=== PATIENT | female | born 1935 | race Caucasian/White ===

== ENCOUNTER 2017-05-06 10:41 | Inpatient (IN) | payer MEDICAID, MEDICARE ==
[~2017-05-06] VITALS: Ht 165.1 cm; Wt 72.1 kg
[2017-05-06 10:43] VITALS: BP 147/86
--- NOTE | 2017-05-06 10:55 | NUR ---
PATIENT BIB [facility] TO ER BED 4.
--- NOTE | 2017-05-06 10:56 | NUR ---
EKG AT BEDSIDE.
--- NOTE | 2017-05-06 10:56 | NUR ---
82F BIBA FROM HOME C/O DIFFICULTY BREATHING AND DIFFICULTY SWALLOWING X THIS MORNING; PT AWAKE, ALERT, ORIENTED, ANSWERING IN FULL SENTENCES ON ARRIVAL. HX: HTN, ARTHRITIS, STENT PLACEMENT IN HEART.DENIES N/V/D; SKIN IS PINK/WARM/DRY; AAOX4 WITH EVEN AND UNTEADY GAIT; LUNGS CLEAR BL; HR EVEN AND REGULAR; PATIENT STATES PAIN OF 7/10 AT THIS TIME; VSS; PATIENT POSITIONED FOR COMFORT; HOB ELEVATED; BEDRAILS UP X2; BED DOWN. ER MD MADE AWARE OF PT STATUS.
--- NOTE | 2017-05-06 10:58 | NUR ---
Kennedy adams in [facility] - 05/06/17 at 1058 by MEDDCV PATIENT BEING EVALUATED BY DR. WAGNER.
--- NOTE | 2017-05-06 10:58 | NUR ---
PATIENT BEING EVALUATED BY DR. WAGNER.
[2017-05-06] MEDS ORDERED: NACL 0.9% 1,000 ML IV SCH (11:00)
[2017-05-06] MEDS ORDERED: IPRATROPIUM 0.02% 0.5 MG/2.5 ML NEBU INH ONE (11:05)
[2017-05-06] MEDS ORDERED: ALBUTEROL 0.083% 2.5 MG/3 ML NEBU INH ONE (11:05)
[2017-05-06] MEDS ORDERED: KETOROLAC 30 MG/ML VIAL IVP ONE (11:05)
--- NOTE | 2017-05-06 11:15 | NUR ---
INSERTED IV CATH 20G LAC; PT TOLERATED PROCEDURE WELL . IV PATENT/INTACT.
--- NOTE | 2017-05-06 11:20 | NUR ---
RT AT BEDSIDE FOR 1ST BREATHING TREATMENT.
[2017-05-06 11:25] LABS: BASOPHILS # (AUTO) 0.2 K/uL (0.00-0.22); BASOPHILS % (AUTO) 3.2 % (0.0-2.0); EOSINOPHILS # (AUTO) 0.1 K/uL (0-0.4); EOSINOPHILS % (AUTO) 1.9 % (0.0-4.0); HEMATOCRIT 42.6 % (36-48); HEMOGLOBIN 14.1 g/dL (12.0-16.0); LYMPHOCYTES # (AUTO) 0.8 K/uL (2.5-16.5); LYMPHOCYTES % (AUTO) 13.8 % (20.5-51.1); MEAN CORPUSCULAR HEMOGLOBIN 30 pg (27-31); MEAN CORPUSCULAR HGB CONC 33 g/dL (33-37); MEAN CORPUSCULAR VOLUME 90 fL (80-94); MONOCYTES # (AUTO) 0.3 K/uL (0.8-1.0); MONOCYTES % (AUTO) 5.5 % (1.7-9.3); NEUTROPHILS # (AUTO) 4.7 K/uL (1.8-7.7); NEUTROPHILS % (AUTO) 75.6 % (42.2-75.2); PLATELET COUNT (AUTO) 162 K/uL (140-450); RED BLOOD CELL COUNT(AUTO) 4.74 MIL/uL (4.20-5.40); WHITE BLOOD COUNT (AUTO) 6.1 K/uL (4.8-10.8)
[2017-05-06 11:41] LABS: AMYLASE 28 U/L (25-115); LIPASE 46 U/L (73-393)
[2017-05-06 11:43] LABS: ANION GAP 9.9 (8-16); CALCIUM 8.9 mg/dL (8.5-10.1); CARBON DIOXIDE 29.9 mmol/L (21-32); CHLORIDE 104 mmol/L (98-107); CREATININE 0.8 mg/dL (0.6-1.3); GLUCOSE 99 mg/dL (74-106); POTASSIUM 3.8 mmol/L (3.5-5.1); SODIUM SERUM 140 mmol/L (136-145); UREA NITROGEN, BLOOD 8 mg/dL (7-18)
--- NOTE | 2017-05-06 11:46 | NUR ---
INSERTED IV CATH 20G RAC; PT TOLERATED PROCEDURE WELL . IV PATENT/INTACT.
[2017-05-06 11:47] LABS: ALANINE AMINOTRANSFERASE 17 U/L (14-59); ALBUMIN 3.7 g/dL (3.4-5.0); ALKALINE PHOSPHATASE 77 U/L (46-116); ASPARTATE AMINOTRANSFERASE 22 U/L (15-37); TOTAL BILIRUBIN 0.8 mg/dL (0.0-1.0); TOTAL PROTEIN, SERUM 7.6 g/dL (6.4-8.2)
[2017-05-06 11:50] LABS: INR 1.1 (0.8-1.2); PARTIAL THROMBOPLASTIN TIME 27.5 secs (22-35.6); PROTHROMBIN TIME 11.2 secs (10.8-13.4)
[2017-05-06] MEDS ORDERED: LORazepam 2 MG/ML VIAL IVP ONE (12:25)
[2017-05-06] MEDS ORDERED: ACETAMINOPHEN 325 MG TAB PO PRN (15:00)
[2017-05-06] MEDS ORDERED: DOCUSATE SODIUM 100 MG GELCAP PO PRN (15:00)
[2017-05-06] MEDS ORDERED: ONDANSETRON 4 MG/2 ML VIAL IM/IVP PRN (15:00)
[2017-05-06 15:21] LABS: APPEARANCE,URINE CLEAR (CLEAR); BILIRUBIN,URINE NEGATIVE (NEGATIVE); BLOOD, URINE 2+ (NEGATIVE); COLOR,URINE YELLOW (YELLOW); LEUKOCYTE ESTERASE ,URINE NEGATIVE (NEGATIVE); NITRITE, URINE NEGATIVE (NEGATIVE); PH,URINE 5.5 (5.0-9.0); PROTEIN,URINE NEGATIVE (NEGATIVE); UGLUCOSE NEGATIVE (NEGATIVE); UROBILINOGEN,URINE 0.2 EU/dL (0.2 - 1)
[2017-05-06 15:28] LABS: AMPHETAMINE, URINE NEG. ng/ml (NEG <=1000); BARBITURATE, URINE NEG. ng/ml (NEG <=200); BENZODIAZEPINE, URINE POS. ng/mL (NEG <=200); CANNABINOID, URINE NEG. ng/mL (NEG <=50); COCAINE, URINE NEG. ng/mL (NEG <=300); OPIATE, URINE POS. ng/mL (NEG <=2000); PHENCYCLIDINE SCREEN,URINE NEG. ng/mL (NEG <=25)
[2017-05-06 15:37] LABS: CHOL/HDL RATIO 3.9 (1-4.5); FREE T4 (FREE THYROXINE) 1.25 ng/dL (0.76-1.46); MAGNESIUM 1.9 mg/dL (1.8-2.4); PHOSPHORUS 3.5 mg/dL (2.5-4.9); THYROID STIMULATING HORMONE 0.89 uIU/mL (0.34-3.74)
[2017-05-06 15:47] LABS: BACTERIA,URINE RARE /HPF (None Seen); MUCUS,URINE 1+ /LPF (None Seen); RBC,URINE 0-5 /HPF (0-5); SQUAMOUS EPITHELIAL CELL,UR 0-3 /LPF (0-3 (FEW)); WBC,URINE 0-3 /HPF (0-5)
--- NOTE | 2017-05-06 15:49 | NUR ---
Patient will be admitted to care of DR GONZALEZ. Admited to TELE. Will go to [id number]. Belongings list completed. Report to ELISA RIVERA.
[2017-05-06] MEDS ORDERED: LORazepam 2 MG/ML VIAL IM/IVP PRN (15:50)
[2017-05-06] MEDS ORDERED: LIDOCAINE VISCOUS 2% 20 ML UDC PO PRN (15:50)
[2017-05-06] MEDS ORDERED: DICYCLOMINE HCL LIQUID 10 MG/5 ML UDC PO PRN (15:50)
[2017-05-06] MEDS ORDERED: ALUMINUM HYD/MAG/SIMETHICONE 30 ML UDC PO PRN (16:01)
[2017-05-06 16:15] VITALS: BP 149/91
--- NOTE | 2017-05-06 17:00 | NUR ---
Admitted from ED , with chief complaint of SOB, [id number] WEEK. PT IS AAOX4, 82 y/o ,Female, Cooperative,oriented to call light, bed, phone,television, bathroom, smoking policy,visiting hours, procedures, ID bracelet on. Belongings list checked.Instructed to hali;l for assistance, call light within reach, pt verbalized understanding.
[2017-05-06] MEDS ORDERED: PNEUMOCOCCAL VACCINE 23 MCG/0.5 ML VIAL IMVAC SCH (17:05)
[2017-05-06] MEDS ORDERED: ZOLP5TAB1 PO (17:26)
[2017-05-06] MEDS ORDERED: GABA100C PO ×2 (17:33→18:10)
[2017-05-06] MEDS ORDERED: MECL-270 PO (17:33)
[2017-05-06] MEDS ORDERED: DIAZ5TAB6 PO (17:33)
[2017-05-06] MEDS ORDERED: LOSA100T1 PO ×2 (17:33→18:10)
[2017-05-06] MEDS ORDERED: ZOLP10TA1 PO (18:10)
[2017-05-06] MEDS ORDERED: ROSU20TA PO (18:10)
[2017-05-06] MEDS ORDERED: ISOS20TA13 PO (18:10)
[2017-05-06] MEDS ORDERED: MECL-322 PO (18:10)
[2017-05-06] MEDS ORDERED: DIAZ5TAB7 PO (18:10)
[2017-05-06] MEDS ORDERED: DIAZEPAM 5 MG TAB PO PRN (18:15)
[2017-05-06] MEDS: NACL 0.9% 1,000 ML IV SCH (18:16)
--- NOTE | 2017-05-06 19:25 | NUR ---
pt awake, Ultrasound of thyroid on going at the bedside. no signs of pain noted at this time. endorsed to next shift nurse for continuity of care.
--- NOTE | 2017-05-06 19:30 | NUR ---
RECEIVED REPORTS FROM DAY RN. PATIENT RESTING IN BED AND RECEIVING ULTRASOUND OF THYROID AT BEDSIDE, NO S/S OF ACUTE DISTRESS NOTED, RESPIRATION EVEN AND UNLABORED. IV INTACT AND PATENT, INFUSING NS AT 60ML/HR. CALL LIGHT WITHIN REACH, SAFETY MEASURE ENSURED. WILL CONTINUE TO MONITOR.
[2017-05-06 20:00] VITALS: BP 159/90
[2017-05-06] MEDS ORDERED: ATORVASTATIN 20 MG TAB PO SCH ×2 (21:00→21:10)
[2017-05-06] MEDS: ATORVASTATIN 20 MG TAB PO SCH (21:00)
[2017-05-06] MEDS: ZOLPIDEM 5 MG TAB PO SCH (21:21)
[2017-05-06] MEDS: MORPHINE SULFATE 2 MG/ML SYR IVP PRN (21:25)
--- NOTE | 2017-05-06 21:37 | NUR ---
PATIENT REPORTED RIGHT SHOULDER PAIN 8/10, BP 150/88, HR 78, MORPHINE GIVEN ORDERED, AND REPOSITIONED PATIENT TO HER COMFORTABLE POSITION, DIM THE LIGHT. CALL LIGHT WITHIN REACH, SAFETY MEASURE ENSURED, WILL CONTINUE TO MONITOR.
--- NOTE | 2017-05-06 23:20 | NUR ---
PATIENT SLEEPING IN BED, NO S/S OF ACUTE DISTRESS NOTED, RESPIRATION EVEN AND UNLABORED, CALL LIGHT WITHIN REACH, SAFETY MEASURE ENSURED, WILL CONTINUE TO MONITOR.
[2017-05-07] VITALS: BP 147/70
[2017-05-07] MEDS: MORPHINE SULFATE 2 MG/ML SYR IVP PRN ×3 (01:42→17:25)
--- NOTE | 2017-05-07 01:45 | NUR ---
ASSISTED PATIENT TO USE THE BEDSIDE COMMODE, PATIENT STATED PAIN 8/10 AROUND HER NECK, MORPHINE GIVEN ORDERED, REPOSITION PATIENT TO HER COMFORTABLE POSITION, CALL LIGHT WITHIN REACH, SAFETY MEASURE ENSURED, WILL CONTINUE TO MONITOR.
--- NOTE | 2017-05-07 02:55 | NUR ---
PATIENT SLEEPING IN BED, NO S/S OF ACUTE DISTRESS NOTED, RESPIRATION EVEN AND UNLABORED, CALL LIGHT WITHIN REACH, SAFETY MEASURE ENSURED, WILL CONTINUE TO MONITOR.
[2017-05-07 04:00] VITALS: BP 128/68
--- NOTE | 2017-05-07 04:28 | NUR ---
PATIENT SLEEPING IN BED, EASY TO AROUSE, NO S/S OF ACUTE DISTRESS NOTED, RESPIRATION EVEN AND UNLABORED, CALL LIGHT WITHIN REACH, SAFETY MEASURE ENSURED, WILL CONTINUE TO MONITOR.
--- NOTE | 2017-05-07 06:29 | NUR ---
PATIENT SLEEPING IN BED, NO S/S OF ACUTE DISTRESS NOTED, RESPIRATION EVEN AND UNLABORED, CALL LIGHT WITHIN REACH, SAFETY MEASURE ENSURED, WILL CONTINUE TO MONITOR.
[2017-05-07 06:35] LABS: ANION GAP 9.1 (8-16); CARBON DIOXIDE 28.1 mmol/L (21-32); CHLORIDE 108 mmol/L (98-107); CREATININE 0.7 mg/dL (0.6-1.3); GLUCOSE 85 mg/dL (74-106); POTASSIUM 3.2 mmol/L (3.5-5.1); SODIUM SERUM 142 mmol/L (136-145); UREA NITROGEN, BLOOD 10 mg/dL (7-18)
--- NOTE | 2017-05-07 06:40 | NUR ---
PATIENT HAS BEEN SCREENED AND CATEGORIZED HIGH NUTRITION RISK. PATIENT WILL BE SEEN WITHIN 1-2 DAYS OF ADMISSION. 05/07/17-05/08/17 LYNDA LARSEN MS, RDN
[2017-05-07 06:50] LABS: MAGNESIUM 1.9 mg/dL (1.8-2.4); PHOSPHORUS 4.1 mg/dL (2.5-4.9)
--- NOTE | 2017-05-07 07:20 | NUR ---
ENDORSED PLAN OF CARE TO DAY RN, PATIENT RESTING IN BED, IN STABLE CONDITION. RESPIRATION EVEN AND UNLABORED.
--- NOTE | 2017-05-07 07:30 | NUR ---
RECEIVED PT ON BED AWAKE AND ALERT. NO SOB NOTED. NO C/O PAIN AT THIS TIME. IV TO LEFT UPPER ARM PATENT AND INTACT. CHEST, DIMINISHED AIR ENTRY TO THE BASES, OTHERWISE CLEAR. ABDOMEN SOFT, BOWEL SOUNDS PRESENT. NO EDEMA NOTED. SCD'S IN PLACE. INSTRUCTED PT TO CALL FOR ASSISTANCE, CALL LIGHT WITHIN REACH, PT VERBALIZED UNDERSTANDING
[2017-05-07] MEDS: NACL 0.9% 1,000 ML IV SCH ×2 (07:37→17:58)
[2017-05-07 08:00] VITALS: BP 132/62
[2017-05-07] MEDS: LOSARTAN 50 MG TAB PO SCH (09:47)
[2017-05-07] MEDS: PANTOPRAZOLE 40 MG TABEC PO PRN (09:48)
[2017-05-07] MEDS: GABAPENTIN 100 MG CAP PO SCH ×3 (09:48→18:22)
[2017-05-07] MEDS: MECLIZINE 25 MG TAB PO PRN ×2 (09:48→22:30)
[2017-05-07] MEDS: ISOSORBIDE DINITRATE 20 MG TAB PO SCH (09:48)
[2017-05-07] MEDS: DIAZEPAM 5 MG TAB PO PRN ×2 (09:50→18:22)
--- NOTE | 2017-05-07 10:30 | NUR ---
PT ASSISTED TO THE BEDSIDE BY ICE DELIVERY DRIVER, ACTIVITY TOLERATED WELL.
[2017-05-07 12:00] VITALS: BP 128/63
[2017-05-07] MEDS ORDERED: CALCIUM CARB/VIT-D 500 MG/200 IU 1 TAB PO SCH ×2 (12:29→21:00)
[2017-05-07] MEDS ORDERED: POTASSIUM CHLORIDE 40 MEQ, LIDOCAINE 1% 25 MG in NACL 0.9% 250 ML IV SCH (13:00)
--- NOTE | 2017-05-07 14:30 | NUR ---
PRESENT IV LEAKING AND REMOVED. A NEW IV LINE ON LT HAND ESTABLISHED WITH GAUGE 24.
--- NOTE | 2017-05-07 14:57 | NUR ---
PT TRANSFERRED TO MED SURG ORDERED, TELEMETRY BOX REMOVED.
--- NOTE | 2017-05-07 17:00 | NUR ---
RECEIVED REPORT FROM MIGUEL RN AT BEDSIDE FOR CONTINUITY OF CARE. PT IS RESTING COMFORTABLY. IV AT L HAND 24G INFUSING K-RIDER W/ LIDO AT 48ML/HR. PT COMPLAINED OF PAIN DURING INFUSION. SLOWED IT DOWN. PT NOW TOLERATING WELL. PT'S SKIN INTACT. NOTED TH L UPPER ARM BRUISE FROM OLD IV. PT ON ROOM AIR. NOTED NO DIFFICULTY IN BREATHING. NO SOB. PT AWAITING FNS EVAL/SWALLOW EVAL AND DR. CUEVAS CONSULT. WILL CONTINUE TO MONITOR PT.
--- NOTE | 2017-05-07 17:25 | NUR ---
PT C/O OF PAIN IN HER IV SITE D/T THE K-RIDER. REDUCED TO 38ML/HR. PT TOLERATING WELL. WILL CONTINUE TO MONITOR.
--- NOTE | 2017-05-07 18:22 | NUR ---
ADMINISTERED GABAPENTIN AND VALIUM LATE. PT TOLERATED WELL. WILL CONTINUE TO MONITOR PT.
--- NOTE | 2017-05-07 18:44 | NUR ---
PT SLEEPING SOUNDLY. NO SIGNS OF DISTRESS. WILL CONTINUE TO MONITOR PT.
--- NOTE | 2017-05-07 19:21 | NUR ---
ENDORSED PT TO THE NIGHTSHIFT NURSE AT BEDSIDE FOR CONTINUITY OF CARE. PT IN STABLE CONDITION.
--- NOTE | 2017-05-07 19:21 | NUR ---
PATIENT IS CURRENTLY AWAKE ALERT TO NAME AND PLACE AND ABLE TO FOLLOW COMMANDS.PATIENT IS RESTING IN BED IS ABLE TO LET US KNOW WHEN SHE NEEDS TO USE THE BEDPAN OR BEDSIDE COMMODE.PATIENT IS WEARING THE SCD'S FOR DVT PROPHALAXIS AND IS ON FALL PRECAUTIONS.EDUCATION GIVEN ON THE IMPORTANCE OF USING THE INCENTIVE SPIROMETER FOR BREATHING EXERCISES PATIENT VERBALIZES UNDERSTANDING BUT REINFORCEMENT IS NEEDED.CALL LIGHT WITHIN REACH WILL CONTINUE TO MONITOR.
--- NOTE | 2017-05-07 19:35 | NUR ---
Patient's Plan of Care was discussed and reviewed with CONSUMER LOAN MANAGER: RADHA
[2017-05-07 20:00] VITALS: BP 127/74
[2017-05-07] MEDS: CALCIUM CARB/VIT-D 500 MG/200 IU 1 TAB PO SCH (20:27)
[2017-05-07] MEDS: ZOLPIDEM 5 MG TAB PO SCH (20:27)
[2017-05-07] MEDS: ATORVASTATIN 20 MG TAB PO SCH (21:00)
--- NOTE | 2017-05-07 21:30 | NUR ---
PATIENT NEEDS MET CONTINUES TO BE CHANGED AND REPOSITIONED ASSISTED WITH THE BEDPAN [facility] GIVEN BY ALVARADO TOUSSAINT AND ALVARADO ZAMORA.
[2017-05-07] MEDS: HYDROcodone/APAP 7.5/325 MG 1 TAB PO PRN (22:29)
--- NOTE | 2017-05-07 23:45 | NUR ---
PATIENT SLEEPING AT THIS TIME IVF INFUSING WELL IV SITE PATENT.NEEDS MET CALL LIGHT WITHIN REACH.
[2017-05-08] VITALS: BP 137/86
--- NOTE | 2017-05-08 00:05 | NUR ---
VITALS SIGNS DONE PATIENT DENIES PAIN AND WENT BACK TO SLEEP.WILL CONTINUE TO MONITOR.
--- NOTE | 2017-05-08 02:55 | NUR ---
PATIENT IS CURRENTLY SLEEPING IN BED NO DISTRESS CURRENTLY CLEAN AND DRY.IVF INFUSING WELL WILL CONTINUE TO MONITOR.CALL LIGHT WITHIN REACH.
[2017-05-08] MEDS: MORPHINE SULFATE 2 MG/ML SYR IVP PRN ×4 (05:18→20:47)
--- NOTE | 2017-05-08 05:53 | NUR ---
PATIENT ASSISTED WITH THE BEDPAN AND PATIENT CONTINUES TO VOID WELL.PATIENT CURRENTLY STABLE SLEEPING PAIN LEVEL 0/10 AT THIS TIME,IVF INFUSING WELL IV SITE PATENT WILL CONTINUE TO MONITOR.
[2017-05-08 06:18] LABS: ANION GAP 8.7 (8-16); CALCIUM 8.1 mg/dL (8.5-10.1); CARBON DIOXIDE 28.1 mmol/L (21-32); CHLORIDE 109 mmol/L (98-107); CREATININE 0.8 mg/dL (0.6-1.3); GLUCOSE 87 mg/dL (74-106); POTASSIUM 3.8 mmol/L (3.5-5.1); SODIUM SERUM 142 mmol/L (136-145); UREA NITROGEN, BLOOD 8 mg/dL (7-18)
[2017-05-08 06:19] LABS: MAGNESIUM 1.9 mg/dL (1.8-2.4); PHOSPHORUS 3.4 mg/dL (2.5-4.9)
[2017-05-08] MEDS ORDERED: POTASSIUM CHLORIDE 10 MEQ TABER PO SCH (07:00)
--- NOTE | 2017-05-08 07:30 | NUR ---
RECEIVED REPORT FROM AM NURSE. PT IS IN STABLE CONDITION, ALERT, ORIENTED BUT FORGETFUL. IV FLUIDS INFUSING ON LEFT HAND GAUGE #24. BEDSIDE COMMODE AT THE SIDE OF THE BED. SKIN IS INTACT. PT ON FULL LIQUID DIET, ON ASPIRATION PRECAUTION. BED ON LOW POSITION, BED ALARM ON, CALL LIGHT WITHIN REACH. PT ENCOURAGED TO CALL FOR ANY ASSISTANCE NEEDED. WILL CONTINUE TO MONITOR. Addendum: 05/09/17 at 0408 by Mariana Power RN CANCEL ABOVE NOTATION. CAREGIVER MISTAKE .
--- NOTE | 2017-05-08 07:41 | NUR ---
PATIENT STABLE REPORT ENDORSED TO ELISA GOODWIN AT BEDSIDE.
--- NOTE | 2017-05-08 07:42 | NUR ---
RECEIVED REPORT FROM FIELD CROP FARMWORKER NURSE AT BEDSIDE. PT IS A&OX4 BUT FORGETFUL. PT HAS IV ON L WRIST 24 G RUNNING NS@60. PT IS C/O PAIN IN R SHOULDER. WILL MEDICATE. PT HAS STITCH ON L EYEBROW. PT USES BEDSIDE COMMODE AND BEDPAN. BED ALARM ON. CALL LIGHT WITHIN REACH. WILL CONTINUE TO MONITOR.
[2017-05-08 08:00] VITALS: BP 152/77
[2017-05-08] MEDS: DIAZEPAM 5 MG TAB PO PRN ×2 (08:21→18:32)
[2017-05-08] MEDS: ISOSORBIDE DINITRATE 20 MG TAB PO SCH (09:00)
[2017-05-08] MEDS: CALCIUM CARB/VIT-D 500 MG/200 IU 1 TAB PO SCH ×2 (09:00→21:33)
[2017-05-08] MEDS: GABAPENTIN 100 MG CAP PO SCH ×3 (09:00→17:04)
[2017-05-08] MEDS: LOSARTAN 50 MG TAB PO SCH (09:00)
[2017-05-08] MEDS: ATORVASTATIN 20 MG TAB PO SCH (09:00)
--- NOTE | 2017-05-08 09:30 | NUR ---
PT USED BED FONTAINE TO VOID. TOLERATED WELL. CALL LIGHT WITHIN REACH. WILL CONTINUE TO MONITOR.
[2017-05-08] MEDS ORDERED: LACTULOSE 20 GM/30 ML UDC PO SCH (10:27)
--- NOTE | 2017-05-08 11:03 | NUR ---
PT IS RESTING COMFORTABLY IN BED. CALL LIGHT WITHIN REACH. WILL CONTINUE TO MONITOR.
--- NOTE | 2017-05-08 12:51 | NUR ---
PT C/O PAIN. MEDICATED. PT TOLERATED WELL. CALL LIGHT WITHIN REACH. WILL CONTINUE TO MONITOR.
--- NOTE | 2017-05-08 13:25 | NUR ---
FAXED INITIAL REVIEW TO [facility] [phone] PHONE [place] [phone] REF #[id number]
--- NOTE | 2017-05-08 13:30 | NUR ---
SPEECH THERAPIST PERFORMING SWALLOW EVAL AT BEDSIDE. PT TOLERATED WELL.
--- NOTE | 2017-05-08 14:23 | NUR ---
05/08/17 RD INITIAL ASSESSMENT COMPLETED PLEASE REFER TO NUTRITION ASSESSMENT UNDER CARE ACTIVITY FOR ESTIMATED NUTRITIONAL NEEDS. 1. WHEN MEDICALLY FEASIBLE, INITIATE PO DIET - REGULAR WITH TEXTURE PER ST RECOMMENDATIONS 2. IF PO DIET NOT FEASIBLE, REFER TO RD FOR ALTERNATIVE NUTRITION SUPPORT 3. RD TO FOLLOW UP WITHIN 2-3 DAYS; HIGH RISK NO MATHIS RD
--- NOTE | 2017-05-08 15:54 | NUR ---
TALKED TO DR. DICK REGARDING PT'S REQUEST TO REMOVE STITCHES ON L EYEBROW AND HIGH BP OF 173/79. DR WILL SEE PT.
[2017-05-08 16:00] VITALS: BP 173/79
--- NOTE | 2017-05-08 16:20 | NUR ---
S.T. NOTES PLEASE REFER TO HARD CHART DOWNTIME FORMS FOR SWALLOW KIKA, AMANDA AND MADE AWARE RECOMMENDATION FOR MBSS VIDEO SWALLOW.
[2017-05-08 16:40] VITALS: BP 168/81
--- NOTE | 2017-05-08 16:40 | NUR ---
PHYSICAL THERAPIST WORKED WITH PT. BP 168/81. PT TOLERATED WELL BUT STILL WEAK. CALL LIGHT WITHIN REACH. WILL CONTINUE TO MONITOR.
[2017-05-08] MEDS: NACL 0.9% 1,000 ML IV SCH (16:57)
--- NOTE | 2017-05-08 17:00 | NUR ---
DR. DICK EXAMINED PT IN ROOM. STATED WILL ORDER TO REMOVE STITCHES.
--- NOTE | 2017-05-08 17:40 | NUR ---
STITCHES REMOVED. WOUND HEALED WELL. NO OPENING OR BLEEDING. PT TOLERATED WELL. CALL LIGHT WITHIN REACH. WILL CONTINUE TO MONITOR.
--- NOTE | 2017-05-08 19:29 | NUR ---
ENDORSED CARE OF PT TO PILAR RN AT BEDSIDE. PT IN STABLE CONDITION.
--- NOTE | 2017-05-08 19:30 | NUR ---
RECEIVED REPORT FROM AM NURSE. PT IS IN STABLE CONDITION, ALERT, ORIENTED BUT FORGETFUL. IV FLUIDS INFUSING ON LEFT HAND GAUGE #24. BEDSIDE COMMODE AT THE SIDE OF THE BED. SKIN IS INTACT. PT ON FULL LIQUID DIET, ON ASPIRATION PRECAUTION. BED ON LOW POSITION, BED ALARM ON, CALL LIGHT WITHIN REACH. PT ENCOURAGED TO CALL FOR ANY ASSISTANCE NEEDED. WILL CONTINUE TO MONITOR.
--- NOTE | 2017-05-08 20:40 | NUR ---
IV ACCESS ON LEFT HAND WAS LEAKING AND DISCONTINUED. STARTED NEW IV ACCESS ON LEFT UPPER ARM, GAUGE #24 BY DAVID PÉREZSOCIAL CONTACT WORKER.
[2017-05-08 20:44] VITALS: BP 157/80
--- NOTE | 2017-05-08 21:30 | NUR ---
ASSISTED PT TO BEDSIDE COMMODE. VOIDED WELL. PT REPOSITIONED BACK INTO BED.
[2017-05-08] MEDS: ZOLPIDEM 5 MG TAB PO SCH (21:33)
--- NOTE | 2017-05-08 23:00 | NUR ---
PT VOIDED IN BEDPAN PER HER REQUEST.
[2017-05-09 00:05] VITALS: BP 155/77
--- NOTE | 2017-05-09 01:00 | NUR ---
MADE ROUNDS, PT IS SLEEPING AND SHOWING NO SIGNS OF DISCOMFORT.
[2017-05-09] MEDS ORDERED: INSULIN LISPRO SLIDING SCALE 100 UNITS/ML VIAL SUBQ PRN (01:35)
[2017-05-09] MEDS ORDERED: NACL 0.9% 1,000 ML IV SCH (01:35)
[2017-05-09] MEDS ORDERED: DEXTROSE 50% 50 ML SYR IVP PRN (01:35)
[2017-05-09] MEDS: MORPHINE SULFATE 2 MG/ML SYR IVP PRN ×4 (02:08→20:50)
[2017-05-09] MEDS: NACL 0.9% 1,000 ML IV SCH ×2 (02:20→19:00)
--- NOTE | 2017-05-09 04:30 | NUR ---
PT IS SLEEPING SHOWING NO SIGNS OF DISCOMFORT.
--- NOTE | 2017-05-09 05:00 | NUR ---
ASSISTED PT WITH BEDPAN.
--- NOTE | 2017-05-09 06:00 | NUR ---
PT IS STILL SLEEPING, NO SIGNS OF DISCOMFORT NOTED.
[2017-05-09 06:21] LABS: HEMOGLOBIN A1C 5.1 % (4.8-5.6); T4 (THYROXINE) 7.3 ug/dL (4.5-12.0)
--- NOTE | 2017-05-09 06:30 | NUR ---
CALLED XR DEPT. CLARIFIED ABOUT XR ESOPHAGRAM TODAY. TECH SAID PT NEEDS TO BE NPO FOR THE TEST. SHE LAST HAD SOME WATER @2350 . WITH IVF INFUSING. EXPLAINED TO PT AND VERBALIZED UNDERSTANDING.
[2017-05-09 06:35] LABS: BASOPHILS # (AUTO) 0.1 K/uL (0.00-0.22); BASOPHILS % (AUTO) 2.8 % (0.0-2.0); EOSINOPHILS # (AUTO) 0.2 K/uL (0-0.4); HEMATOCRIT 36.5 % (36-48); HEMOGLOBIN 12.2 g/dL (12.0-16.0); LYMPHOCYTES # (AUTO) 1.1 K/uL (2.5-16.5); LYMPHOCYTES % (AUTO) 21.8 % (20.5-51.1); MEAN CORPUSCULAR HEMOGLOBIN 30 pg (27-31); MEAN CORPUSCULAR HGB CONC 33 g/dL (33-37); MEAN CORPUSCULAR VOLUME 90 fL (80-94); MONOCYTES # (AUTO) 0.4 K/uL (0.8-1.0); MONOCYTES % (AUTO) 7.1 % (1.7-9.3); NEUTROPHILS # (AUTO) 3.3 K/uL (1.8-7.7); NEUTROPHILS % (AUTO) 64.3 % (42.2-75.2); PLATELET COUNT (AUTO) 154 K/uL (140-450); RED BLOOD CELL COUNT(AUTO) 4.05 MIL/uL (4.20-5.40); RED CELL DISTRIBUTION WIDTH 13.1 % (11.6-13.7); WHITE BLOOD COUNT (AUTO) 5.1 K/uL (4.8-10.8)
[2017-05-09 06:49] LABS: ANION GAP 8.7 (8-16); CALCIUM 8.3 mg/dL (8.5-10.1); CARBON DIOXIDE 29.1 mmol/L (21-32); CHLORIDE 109 mmol/L (98-107); CREATININE 0.8 mg/dL (0.6-1.3); GLUCOSE 85 mg/dL (74-106); POTASSIUM 3.8 mmol/L (3.5-5.1); SODIUM SERUM 143 mmol/L (136-145); UREA NITROGEN, BLOOD 5 mg/dL (7-18)
[2017-05-09 06:55] LABS: MAGNESIUM 1.7 mg/dL (1.8-2.4); PHOSPHORUS 3.6 mg/dL (2.5-4.9)
[2017-05-09] MEDS ORDERED: BLOOD GLUCOSE MONITORING 1 DEV DEV FS SCH (07:30)
--- NOTE | 2017-05-09 07:35 | NUR ---
ENDORSED PT IN STABLE CONDITION TO AM NURSE.
--- NOTE | 2017-05-09 07:40 | NUR ---
RECEIVED PATIENT REPORT AT BEDSIDE FROM NIGHT NURSE. PATIENT IS AAOX4 AND SHOWS NO S/S OF ACUTE DISTRESS ON ROOM AIR AND DENIES PAIN. PATIENT'S SKIN IS INTACT. PATIENT IV NOTED ON THE L UPPER ARM WRAPPED WITH GAUZE THAT IS CLEAN DRY AND INTACT. IVF'S ARE INFUSING WELL. PATIENT IS BEING SEEN BY DR MALAGON AND IS EXPLAINING TO PATIENT OF PROCEDURE FOR ULTRASOUND GUIDED NEEDLE BIOPSY IN THYROID FOR LATER TODAY. ALL OF PATIENTS QUESTIONS WERE ANSWERED BY MD. PATIENT VERBALIZED UNDERSTANDING. THE PATIENT WAS ALSO EXPLAINED ABOUT HOW TO USE THE CALL LIGHT FOR ANY ASSISTANCE. PATIENT VERBALIZED UNDERSTANDING OF HOW TO USE THE CALL LIGHT. THE BED IS LOWERED WITH CALL LIGHT WITHIN REACH. WILL CONTINUE TO MONITOR.
[2017-05-09 07:57] VITALS: BP 155/76
[2017-05-09] MEDS: ATORVASTATIN 20 MG TAB PO SCH (08:39)
[2017-05-09] MEDS: LACTULOSE 20 GM/30 ML UDC PO SCH (08:39)
[2017-05-09] MEDS: ISOSORBIDE DINITRATE 20 MG TAB PO SCH (08:40)
[2017-05-09] MEDS: LOSARTAN 50 MG TAB PO SCH (08:40)
[2017-05-09] MEDS: GABAPENTIN 100 MG CAP PO SCH ×3 (08:40→16:20)
[2017-05-09] MEDS: CALCIUM CARB/VIT-D 500 MG/200 IU 1 TAB PO SCH ×2 (08:40→21:13)
[2017-05-09] MEDS: DOCUSATE SODIUM 100 MG GELCAP PO SCH (08:40)
--- NOTE | 2017-05-09 08:40 | NUR ---
ADMINISTERED SCHEDULED MEDICATIONS AND VALIUM 5 MG PO FOR PATIENT C/O ANXIETY. PATIENT TOOK ONE PILL AT A TIME WITH SIPS OF WATER. PATIENT DENIES ANY PAIN AND SOB. PATIENT TOLERATED ACTIVITY WELL. ALL NEEDS MET AT THIS TIME. THE BED IS LOWERED WITH CALL LIGHT WITHIN REACH.
[2017-05-09] MEDS: DIAZEPAM 5 MG TAB PO PRN (08:47)
--- NOTE | 2017-05-09 10:33 | NUR ---
SS NOTE: I SPOKE WITH PT'S SON, LAINE TO OBTAIN THE NAME OF THE HOME HEALTH AGENCY THAT COMES TO SEE PT. HE STATED THAT HE WILL CALL BACK WITH THAT INFORMATION. I ALSO PROVIDED HIM WITH ADVANCE DIRECTIVE INFORMATION REQUESTED BY PT SO THAT HE CAN GO OVER THE FORM WITH PT IF PT DECIDES TO COMPLETE THE FORM AT A LATER TIME.
--- NOTE | 2017-05-09 11:50 | NUR ---
PATIENT IS BEING SEEN BY FOR PROCEDURE OF THE ULTRASOUND GUIDED NEEDLE BIOPSY OF THE THYROID. PATIENT IS AAOX4 AND SHOWS NO S/S OF ACUTE DISTRESS.
--- NOTE | 2017-05-09 12:33 | NUR ---
FAXED CONCURRENT REVIEW TO [facility] [phone] [facility] [place] [phone] REF #[id number]
--- NOTE | 2017-05-09 14:05 | NUR ---
PATIENT IS AAOX4 AND SHOWS NO S/S OF ACUTE DISTRESS. PATIENT LEFT UNIT FOR PROCEDURE IN STABLE CONDITION.
--- NOTE | 2017-05-09 14:50 | NUR ---
PATIENT ARRIVED ONTO UNIT AND IS AAOX4 AND SHOWS NO S/S ACUTE DISTRESS.
--- NOTE | 2017-05-09 15:05 | NUR ---
S.T. VIDEOFLUOROSCOPIC SWALLOW STUDY completed See report for details. Pt presents w/ moderate oropharyngeal dysphagia. Trace laryngeal penetration with eventual silent aspiration observed with thin liquid barium via straw sip. Recommend: 1) Mechanical soft chopped diet, nectar thick liquids only. No straws; cup sips only. 2) P.O. meds as tolerated. 3) Pt is able to feed self, but would benefit from reminders to only drink nectar thickened liquids and avoid straws. G8996 CK G8997 CK NOMS LEVEL 4 TIME IN/OUT: [id number]
[2017-05-09 16:00] VITALS: BP 155/73
[2017-05-09] MEDS: HYDROcodone/APAP 7.5/325 MG 1 TAB PO PRN (16:20)
--- NOTE | 2017-05-09 16:20 | NUR ---
PATIENT C/O NECK PAIN 03/04. ADMINISTERED NORCO 7.5/325 MG PO. WILL REASSESS IN ONE HOUR.
[2017-05-09] MEDS ORDERED: MAG SULF 2000 MG/WATER PREMIX 50 ML IV SCH (16:30)
--- NOTE | 2017-05-09 17:19 | NUR ---
PATIENT WAS SLEEPING AND SHOWING NO S/S OF ACUTE DISTRESS. PATIENT WAS WOKEN UP TO EAT DINNER.
--- NOTE | 2017-05-09 17:20 | NUR ---
PATIENT IS SITTING UP AND EATING DINNER AND TOLERATING FOOD WELL. PATIENT STATES SHE FEELS ANXIOUS. WILL ADMINISTER ATIVAN 0.5 MG IVP.
[2017-05-09] MEDS: LORazepam 2 MG/ML VIAL IM/IVP PRN (19:02)
--- NOTE | 2017-05-09 19:14 | NUR ---
ADMINISTERED PRN ANXIETY MEDICATION ATIVAN 0.5 MG IVP. PATIENT SHOWS NO S/S OF ACUTE DISTRESS AND TALKING ON THE PHONE WITH SON.
--- NOTE | 2017-05-09 19:35 | NUR ---
GAVE PATIENT REPORT AT BEDSIDE. PATIENT ENDORSED IN STABLE CONDITION.
--- NOTE | 2017-05-09 19:36 | NUR ---
RECD. RESTING IN BED, AWAKE, A/OX4. RESPIRATION EVEN AND UNLABORED. IV OF NS AT 60 ML/HR INFUSING, LEFT UPPER ARM G24. USES BSC. SAFETY MEASURES ENFORCED. USES BSC. ON BILATERAL LEG SEQUENTIALS. PLAN OF CARE FOR THE SHIFT DISCUSSED. VERBALIZED UNDERSTANDING. DENIES PAIN 0/10.
--- NOTE | 2017-05-09 20:00 | NUR ---
Patient's Plan of Care was discussed and reviewed with FINAL ASSEMBLER BOAT: HELLEN
[2017-05-09 20:34] VITALS: BP 136/71
[2017-05-09] MEDS: ZOLPIDEM 5 MG TAB PO SCH (21:13)
--- NOTE | 2017-05-09 21:13 | NUR ---
DUE PO MEDICATIONS GIVEN. TOLERATED WELL.
--- NOTE | 2017-05-10 | NUR ---
STILL AWAKE, ENCOURAGED TO GO TO SLEEP.
[2017-05-10 04:00] VITALS: BP 143/70
[2017-05-10] MEDS: MORPHINE SULFATE 2 MG/ML SYR IVP PRN ×4 (05:15→21:07)
--- NOTE | 2017-05-10 06:00 | NUR ---
IV INFILTRATED. NEW IV LINE INSERTED BY ICU NURSE AT THE RIGHT UPPER ARM.
[2017-05-10 06:35] LABS: ANION GAP 10.7 (8-16); CALCIUM 8.5 mg/dL (8.5-10.1); CHLORIDE 107 mmol/L (98-107); CREATININE 0.7 mg/dL (0.6-1.3); GLUCOSE 93 mg/dL (74-106); POTASSIUM 3.7 mmol/L (3.5-5.1); SODIUM SERUM 143 mmol/L (136-145); UREA NITROGEN, BLOOD 6 mg/dL (7-18)
[2017-05-10 06:46] LABS: BASOPHILS # (AUTO) 0.2 K/uL (0.00-0.22); EOSINOPHILS # (AUTO) 0.2 K/uL (0-0.4); EOSINOPHILS % (AUTO) 3.3 % (0.0-4.0); HEMATOCRIT 38.8 % (36-48); HEMOGLOBIN 12.9 g/dL (12.0-16.0); LYMPHOCYTES % (AUTO) 16.8 % (20.5-51.1); MEAN CORPUSCULAR HEMOGLOBIN 30 pg (27-31); MEAN CORPUSCULAR HGB CONC 33 g/dL (33-37); MEAN CORPUSCULAR VOLUME 89 fL (80-94); MONOCYTES # (AUTO) 0.4 K/uL (0.8-1.0); MONOCYTES % (AUTO) 6.7 % (1.7-9.3); NEUTROPHILS # (AUTO) 3.9 K/uL (1.8-7.7); NEUTROPHILS % (AUTO) 69.2 % (42.2-75.2); PLATELET COUNT (AUTO) 140 K/uL (140-450); RED BLOOD CELL COUNT(AUTO) 4.34 MIL/uL (4.20-5.40); RED CELL DISTRIBUTION WIDTH 13.3 % (11.6-13.7); WHITE BLOOD COUNT (AUTO) 5.7 K/uL (4.8-10.8)
[2017-05-10 06:49] LABS: MAGNESIUM 2.2 mg/dL (1.8-2.4); PHOSPHORUS 3.8 mg/dL (2.5-4.9)
--- NOTE | 2017-05-10 07:30 | NUR ---
RECEIVED PT ON BED AWAKE AND ALERT. NO SOB NOTED. NO C/O PAIN AT THIS TIME. IV TO RIGHT UPPER ARM PATENT AND INTACT. CHEST, DIMINISHED AIR ENTRY TO THE BASES, OTHERWISE CLEAR. WITH SMALL RT NECK DRESSING DRY AND INTACT(S/P RT THYROID BIOPSY 05/09/2017). ABDOMEN SOFT, BOWEL SOUNDS PRESENT. NO EDEMA NOTED. SCD'S IN PLACE. INSTRUCTED PT TO CALL FOR ASSISTANCE, CALL LIGHT WITHIN REACH, PT VERBALIZED UNDERSTANDING
[2017-05-10] MEDS: NACL 0.9% 1,000 ML IV SCH ×3 (07:36→23:30)
[2017-05-10 08:00] VITALS: BP 153/78
[2017-05-10] MEDS: DOCUSATE SODIUM 100 MG GELCAP PO SCH (09:00)
[2017-05-10] MEDS: LACTULOSE 20 GM/30 ML UDC PO SCH (09:00)
[2017-05-10] MEDS: CALCIUM CARB/VIT-D 500 MG/200 IU 1 TAB PO SCH ×2 (09:13→20:57)
[2017-05-10] MEDS: LOSARTAN 50 MG TAB PO SCH (09:13)
[2017-05-10] MEDS: GABAPENTIN 100 MG CAP PO SCH ×3 (09:14→17:45)
[2017-05-10] MEDS: DIAZEPAM 5 MG TAB PO PRN ×2 (09:14→20:24)
[2017-05-10] MEDS: ISOSORBIDE DINITRATE 20 MG TAB PO SCH (09:14)
[2017-05-10] MEDS: PANTOPRAZOLE 40 MG TABEC PO PRN (09:14)
[2017-05-10] MEDS: ATORVASTATIN 20 MG TAB PO SCH (09:29)
--- NOTE | 2017-05-10 09:30 | NUR ---
PHYSICAL THERAPY ON GOING AT THE BEDSIDE.
--- NOTE | 2017-05-10 11:23 | NUR ---
CM NOTE CONCURRENT REVIEW FAXED [facility] / FAX# [phone], ATTN: ANAYA #[phone]
[2017-05-10] MEDS: HYDROcodone/APAP 7.5/325 MG 1 TAB PO PRN ×2 (11:42→23:57)
[2017-05-10 11:52] VITALS: BP 126/75
--- NOTE | 2017-05-10 12:00 | NUR ---
CM NOTE LM FOR ANAYA, CM FOR [facility] RE. POSSIBLE SNF PLACEMENT.
--- NOTE | 2017-05-10 14:00 | NUR ---
CM NOTE SPOKE W/ ANAYA; DENNIS IS THE CM FOR THIS PATIENT. C: [phone]. LM RE. SNF PLACEMENT
--- NOTE | 2017-05-10 14:12 | NUR ---
05/10/17 RD FOLLOW-UP ASSESSMENT COMPLETED PLEASE REFER TO NUTRITION ASSESSMENT UNDER CARE ACTIVITY FOR ESTIMATED NUTRITIONAL NEEDS. 1. CONTINUE MECHANICAL SOFT, CARDIAC DIET, NECTAR THICK LIQUIDS 2. REFER TO SPEECH THERAPY NEEDED. 3. RD TO FOLLOW-UP 3-5 DAYS; MODERATE RISK NO MATHIS, QUIQUE
--- NOTE | 2017-05-10 15:30 | NUR ---
SS NOTE: SENT SNF INQUIRIES TO: - [facility] (C: [phone]) - [facility] (C: [phone]) - [facility] (C: [phone]) - [facility] (C: [phone]) - [facility] (C: [phone])
[2017-05-10 16:00] VITALS: BP 125/63
--- NOTE | 2017-05-10 18:05 | NUR ---
PT CONSUMED ABOUT 50% OF DINNER SERVED, ALL MEALS TOLERATED FAIRLY WELL. NO COMPLAINTS OF DIFFICULTY SWALLOWING ON MECHANICAL SOFT WITH THICKENED LIQUID DIET.
--- NOTE | 2017-05-10 19:05 | NUR ---
PT RESTING. NO COMPLAINTS MADE. ENDORSED TO NEXT SHIFT NURSE FOR CONTINUITY OF CARE.
--- NOTE | 2017-05-10 19:06 | NUR ---
RECD. RESTING IN BED, AWAKE, A/OX4. RESPIRATION EVEN AND UNLABORED. IV OF NS AT 60 ML/HR INFUSING. 02 SAT - 95% ON ROOM AIR. STATED WITH ON AND OFF RIGHT SHOULDER PAIN, PLACED SMALL SOFT PILLOW UNDER FOR COMFORT. OFF SEQUENTIALS, PLACED BACK ON BILATERAL SEQUENTIALS, EDUCATED ON IT'S IMPORTANCE, PLAN OF CARE FOR THE SHIFT DISCUSSED. VERBALIZED UNDERSTANDING. DENIES PAIN 0/10.
--- NOTE | 2017-05-10 20:00 | NUR ---
Patient's Plan of Care was discussed and reviewed with EELER: SLICK MACEDO
--- NOTE | 2017-05-10 20:24 | NUR ---
WITH ANXIETY, MEDICATED WITH VALIUM ORDERED BY .
[2017-05-10] MEDS: ZOLPIDEM 5 MG TAB PO SCH (20:57)
--- NOTE | 2017-05-10 20:57 | NUR ---
UNABLE TO SLEEP, MEDICATED WITH AMBIEN 5 MG. PO.
--- NOTE | 2017-05-10 20:57 | NUR ---
DUE PO MEDICATIONS GIVEN WITH THICKEN LIQUIDS. TOLERATED WELL.
--- NOTE | 2017-05-10 21:25 | NUR ---
NO ANXIETY NOTED. WATCHING TV.
--- NOTE | 2017-05-10 21:57 | NUR ---
STILL AWAKE, WATCHING TV.
[2017-05-11] VITALS: BP 144/89
--- NOTE | 2017-05-11 | NUR ---
STILL AWAKE, WATCHING TV. REPOSITIONED IN BED FOR COMFORT.
[2017-05-11 03:28] VITALS: BP 147/83
[2017-05-11] MEDS: LORazepam 2 MG/ML VIAL IM/IVP PRN (03:40)
--- NOTE | 2017-05-11 03:40 | NUR ---
UNABLE TO SLEEP, WITH ANXIETY. MEDICATED WITH ATIVAN ORDERED BY MD BY ELISA SINGH.
--- NOTE | 2017-05-11 04:10 | NUR ---
NO ANXIETY NOTED, SLEEPING COMFORTABLY IN BED.
[2017-05-11] MEDS: NACL 0.9% 1,000 ML IV SCH (04:20)
[2017-05-11 06:13] LABS: ANION GAP 7.5 (8-16); CALCIUM 8.3 mg/dL (8.5-10.1); CARBON DIOXIDE 31.1 mmol/L (21-32); CHLORIDE 107 mmol/L (98-107); CREATININE 0.8 mg/dL (0.6-1.3); GLUCOSE 103 mg/dL (74-106); POTASSIUM 3.6 mmol/L (3.5-5.1); SODIUM SERUM 142 mmol/L (136-145); UREA NITROGEN, BLOOD 7 mg/dL (7-18)
[2017-05-11 06:16] LABS: MAGNESIUM 1.8 mg/dL (1.8-2.4); PHOSPHORUS 3.5 mg/dL (2.5-4.9)
[2017-05-11 06:23] LABS: EOSINOPHILS % (AUTO) 2.9 % (0.0-4.0)
[2017-05-11 06:26] LABS: BASOPHILS # (AUTO) 0.2 K/uL (0.00-0.22); BASOPHILS % (AUTO) 2.2 % (0.0-2.0); EOSINOPHILS # (AUTO) 0.2 K/uL (0-0.4); LYMPHOCYTES # (AUTO) 1.2 K/uL (2.5-16.5); LYMPHOCYTES % (AUTO) 17.4 % (20.5-51.1); MEAN CORPUSCULAR HEMOGLOBIN 30 pg (27-31); MEAN CORPUSCULAR HGB CONC 33 g/dL (33-37); MEAN CORPUSCULAR VOLUME 90 fL (80-94); MONOCYTES # (AUTO) 0.3 K/uL (0.8-1.0); MONOCYTES % (AUTO) 4.2 % (1.7-9.3); NEUTROPHILS % (AUTO) 73.3 % (42.2-75.2); PLATELET COUNT (AUTO) 141 K/uL (140-450); RED BLOOD CELL COUNT(AUTO) 4.34 MIL/uL (4.20-5.40); RED CELL DISTRIBUTION WIDTH 13.1 % (11.6-13.7)
--- NOTE | 2017-05-11 06:57 | NUR ---
CONDITION REMAIN STABLE. WILL ENDORSE TO AM NURSE FOR CONTINUITY OF CARE.
--- NOTE | 2017-05-11 07:00 | NUR ---
RECEIVED PT REPORT FROM SENIOR ELECTRICAL CONTROLS ENGINEER NURSE FOR CONTINUITY OF CARE. INTRODUCED SELF AND UPDATED BOARD. DISCUSSED PLAN WITH PT. PT AWAKE AND IN STABLE CONDITION. VS: WNL WILL CONTINUE TO MONITOR PT AND RETURN WITH MORNING MEDS.
[2017-05-11 07:07] LABS: WHITE BLOOD COUNT (AUTO) 6.9 K/uL (4.8-10.8)
[2017-05-11 08:00] VITALS: BP 140/70
[2017-05-11] MEDS ORDERED: BACL10TA4 PO (08:55)
[2017-05-11] MEDS ORDERED: CALC-602 PO (08:55)
[2017-05-11] MEDS ORDERED: DOCU-67 PO (08:55)
[2017-05-11] MEDS: BACLOFEN 10 MG TAB PO SCH ×2 (08:59→13:01)
[2017-05-11] MEDS: GABAPENTIN 100 MG CAP PO SCH ×2 (09:00→13:00)
[2017-05-11] MEDS: ATORVASTATIN 20 MG TAB PO SCH (09:00)
[2017-05-11] MEDS: DOCUSATE SODIUM 100 MG GELCAP PO SCH (09:00)
[2017-05-11] MEDS: CALCIUM CARB/VIT-D 500 MG/200 IU 1 TAB PO SCH (09:00)
[2017-05-11] MEDS: LOSARTAN 50 MG TAB PO SCH (09:00)
[2017-05-11] MEDS: LACTULOSE 20 GM/30 ML UDC PO SCH (09:00)
--- NOTE | 2017-05-11 09:00 | NUR ---
ADMINISTERED SCHEDULED MEDS TO PT. PT REFUSED STOOL SOFTENER AND LAXATIVE THIS AM. PT STATED LAST BM WAS YESTERDAY THE 05/10 X 2. PT IS ALERT AND ORIENTED X 4. PT IS ON RA, LUNG SOUNDS ARE CLEAR, COUGH IS NON-PRODUCTIVE. CURRENT DIET IS MECHANICAL SOFT WITH THICKENED LIQUIDS. BSC NEXT TO BED, CALL LIGHT WITHIN REACH, BED IN LOW POSITION. PT IS ON ASPIRATION AND FALL PRECAUTIONS. SIGNS POSTED. WILL CONTINUE TO MONITOR PT. IV RUNNING ON LEFT UPPER ARM 24 G NS AT 60 ML/HR.
[2017-05-11] MEDS: ISOSORBIDE DINITRATE 20 MG TAB PO SCH (09:01)
[2017-05-11] MEDS: HYDROcodone/APAP 7.5/325 MG 1 TAB PO PRN ×2 (09:02→13:02)
[2017-05-11] MEDS: MORPHINE SULFATE 2 MG/ML SYR IVP PRN (10:48)
[2017-05-11] MEDS: DIAZEPAM 5 MG TAB PO PRN (10:50)
--- NOTE | 2017-05-11 10:55 | NUR ---
ADMINISTERED MORPHINE AND VALIUM AND PNEUMO INJ. PT TOLERATED WELL. C/O NECK PAIN AND BACK PAIN.
--- NOTE | 2017-05-11 11:46 | NUR ---
SS NOTE: PER SIMIN FROM [facility] ([phone]), PT CAN GO TO ROOM [address] UNDER DR[address] Victor Hugo DOMÍNGUEZ ANYTIME ONCE THEY RECEIVE AUTH FROM PT'S INSURANCE. I SPOKE WITH DENNIS FROM [employer]. SHE STATED THAT SHE ALREADY SPOKE WITH SIMIN FROM [facility] AND THAT THEY WILL RECEIVE AN AUTH VIA FAX VERY SOON. SHE ALSO STATED THAT TRANSPORT CAN BE ARRANGED THROUGH [employer] ([phone] OPT. 2). Addendum: 05/11/17 at 1217 by Joseline Gustafson I SPOKE WITH SIMIN FROM [facility] AND SHE STATED THAT SHE RECEIVED AUTH FROM PT'S INSURANCE. SHE ALSO STATED THAT PT CAN COME ANYTIME AFTER 1500. RAYA OWENS
--- NOTE | 2017-05-11 12:33 | NUR ---
CM NOTE PATIENT TO BE PICKED UP VIA WHEELCHAIR BY [facility] GOING TO [place] [place], RM [address]. ETA 1500. LAINE, SON MADE AWARE; LM. MADE PATIENT AWARE OF TRANSFER, ADMINISTRATION CLERK TIME AND PROVIDED BROCHURE TO PATIENT AT BEDSIDE; PATIENT AGREED ON PLAN. KATHRYN SHANKS MADE AWARE OF TRANSFER SET UP.
--- NOTE | 2017-05-11 13:02 | NUR ---
GAVE PATIENT SCHEDULED BACLOFEN AND GABAPENTIN. PT COMPLAINED OF PAIN /. GAVE PT NORCO FOR MODERATE PAIN. PT TOLERATED MEDS WELL. DISCUSSED TRANSFER TO [facility] WITH PT AND INFORMED PT THAT SONLAINE WAS LEFT MESSAGE AND NOTIFIED OF TRANSFER. PT VERBALIZED UNDERSTANDING. WILL CONTINUE TO MONITOR PT.
--- NOTE | 2017-05-11 13:35 | NUR ---
PT CONTINUES TO C/O RT SHOULDER/NECK PAIN "I CAN'T MOVE IT. AND IF YOU WANT ME TO WALK I CAN'T, THEY GAVE ME PAIN MEDS BUT I'M STILL IN PAIN. I WILL ALSO LEAVE TODAY, MY SON KNOWS BUT HE HASN'T COME YET." PT ALSO VOICED CONCERN ABOUT HER PAIN AND BEING DISCHARGED, EXPLAINED TO PT, HER PAIN WILL BE ADDRESSED IN SNF WELL NOT ONLY THERAPY. THIS P.T. WANTED TO ASSESS ROM OF RT SHOULDER BUT PT REFUSED "NO PLEASE." PT PRESENTS WITH GUARDING OF RT SHOULDER ROM. PT EDUCATED ON RATIONAL AND BENEFITS OF REHAB BUT PT POLITELY SAID "NO NOT TODAY,I WILL LEAVE ANYWAY.' NO CONSENT FOR CARE GIVEN. PER CHART PT TO BE DC TO SNF AT 1500 TODAY. ALICIA
--- NOTE | 2017-05-11 14:24 | NUR ---
CM NOTE CONCURRENT REVIEW FAXED TO [facility] / FAX# [phone], ATTN: DENNIS #[phone]
--- NOTE | 2017-05-11 14:29 | NUR ---
CALLED [facility] DONA BURNHAM TO GIVE REPORT TO ADMITTING NURSE PUSHPA. PT WILL BE ADMITTED TO ROOM 43A BY DR. DOMÍNGUEZ.
--- NOTE | 2017-05-11 15:05 | NUR ---
GAVE DISCHARGE INSTRUCTIONS TO PT. ANSWERED ALL QUESTIONS. PT VERBALIZED UNDERSTANDING. REMOVED IV, CANNULA INTACT. NO BLEEDING NOTED. REMOVED ID BANDS. PT IS DRESSED AND HAS PERSONAL BELONGINGS IN BAG.PT STILL VERY ANXIOUS ABOUT LEAVING TO GO TO SNF. REASSURED PT SHE WILL BE FINE. SNF WILL TAKE CARE OF PT.
--- NOTE | 2017-05-11 15:20 | NUR ---
PT WHEELED OUT IN WHEELCHAIR, ACCOMPANIED BY GUM WORKER AND TRANSPORTER. PT IN STABLE CONDITION AND PERSONAL BELONGINGS IN HAND.
--- NOTE | 2017-05-12 20:49 | NUR ---
YOUTH TEACHER NOTE Pt d/c 05/11/17 to SNF on [facility] soft/nectar thick liquid diet. Rec f/u w/YOUTH TEACHER at next level of care for diet toleration and education of safe swallow strategies 2/2 aspiration risk.
== END 2017-05-11 15:20 | DRG 424 ==
LOC: MED 10:41 → MTU 15:02
PROVIDERS: ADMIT Family Medicine; ATTEND Family Medicine
PROC: 0GBH3ZX Excision of Right Thyroid Gland Lobe, Percutaneous Approach, Diagnostic (ICD-10-PCS; principal; 2017-05-09)
DX: E07.9 Disorder of thyroid, unspecified (principal); I50.43 Acute on chronic combined systolic (congestive) and diastolic (congestive) heart failure; E83.51 Hypocalcemia; G62.9 Polyneuropathy, unspecified; I11.0 Hypertensive heart disease with heart failure; K21.9 Gastro-esophageal reflux disease without esophagitis; K44.9 Diaphragmatic hernia without obstruction or gangrene; E78.5 Hyperlipidemia, unspecified; E87.6 Hypokalemia; M19.90 Unspecified osteoarthritis, unspecified site; F41.9 Anxiety disorder, unspecified; Z87.891 Personal history of nicotine dependence; Z88.0 Allergy status to penicillin; Z83.3 Family history of diabetes mellitus; Z82.49 Family history of ischemic heart disease and other diseases of the circulatory system
CPT/HCPCS: 36415; 70370; 71010; 71260; 76536; 76942; 80048; 80053; 80305; 81001; 82150; 82550; 82553; 83036; 83690; 83735; 83880; 84100; 84436; 84439; 84443; 84479; 84484; 85025; 85379; 85610; 85730; 87081; 90732; 92610; 92611; 93005; 94640; 96374; 96375; 97110; 97116; 97530; 99285; C1758; J1644; J1885; J2001; J2060; J2270; J3475; J3480; J7030; J7613; J7644; J8597; Q0092; Q9967